=== PATIENT | female | born 1945 | race Caucasian/White ===

== ENCOUNTER 2017-02-18 15:05 | Emergency (ER) | payer MEDICARE ==
[~2017-02-18] VITALS: Ht 160 cm; Wt 64.5 kg
[2017-02-18 15:17] VITALS: BP 128/63; PULSE 80; RESP 16; O2SAT 98
--- NOTE | 2017-02-18 15:29 | ED.REPORT ---
HPI-Syncope Date of Service Feb 18, 2017 ED Provider: Steve Berman Patient is a 71 year old female with a hx of HTN who presents to the ED complaining of a syncopal episode while on a bus coming back from a cruise with her . Per , she was unconscious for approximately a minute. Associated symptoms include abdominal cramping which she attributes to eating half a bag of spicy beef jerky. She has been eating normally but reports drinking less than normal. She denies chest pain, SOB, lightheadedness, dizziness, headache, fever, chills, or any other symptoms. Patient had a similar episode after a major knee surgery 4 mo ago. Per , pt has been amnestic to both events. Patient is on her way back home to [place]. Nursing Notes Stated Complaint: WAS UNRESPONSIVE Chief Complaint: General Complaint Nursing Notes Reviewed: Yes Allergies: Coded Allergies: Penicillins (Verified Allergy, Severe, Rash, 02/18/17) celecoxib (Verified Allergy, Severe, Anaphylaxis, 02/18/17) ibuprofen (Verified Adverse Reaction, Severe, Abdominal Pain, 02/18/17) General Time Seen by Provider: 15:29 Chief Complaint Became unresponsive Hx Obtained From: Patient, Spouse Arrived By: Walk-in Onset Occurred: Just prior to arrival Symptom Duration: 1 - 15 minutes (1 min ) Progression Since Onset: Resolved Location: : Abdomen Quality: Cramping Severity: Current: Mild Severity: Maximum: Mild Related History: Reports: Hypertension Immunizations: Unknown Similar Sx Previous: Yes Past Medical History Past Medical History HTN Past Surgical History None reported Smoking History Unknown if Ever Smoker Social History Other Social History: , From out of town, Visiting locally Ambulatory Status Independent Review of Systems Review of Systems Note: - decreased appetite + decreased fluid intake Constitutional: Denies: Chills, Fever Respiratory: Denies: Shortness of breath Cardiovascular: Denies: Chest pain GI: Reports: Abdominal pain Neurologic: Reports: Syncope, Denies: Dizziness, Headache, Lightheaded Complete sys rev & neg: except as marked. Physical Exam Initial Vital Signs Vital Signs (First) Date Time Temp Pulse Resp B/P Pulse Ox O2 Delivery O2 Flow Rate FiO2 02/18/17 15:17 35.8 80 16 128/63 98 Room Air Initial VS: Reviewed, Vital signs normal Head / Eyes: Atraumatic, Normocephalic, PERRL Neck: Supple, Non-tender, Full range of motion Skin: Warm, Dry Psychiatric: Mood/affect normal, Behavior normal, Normal thought content General/Constitutional: Awake, Alert, No acute distress Respiratory / Chest: Atraumatic, Breath sounds NL, Breath sounds = bilat, No respiratory distress Cardiovascular: Heart rate NL, Regular rhythm, Heart sounds NL, No gallop, No murmurs, No rubs Lower Extremity / Pelvis / MS: Atraumatic, Inspection NL Neurologic: Oriented X3, Speech NL Abdomen: Atraumatic, Soft, Non-tender, No guarding, No rebound, BS normoactive , No pulsatile mass Interpretation & Diagnostics Lab Results Interpretation Result Diagram: 02/18/17 1551 02/18/17 1551 Test 02/18/17 15:37 02/18/17 15:51 Hold Urine Received (Received) White Blood Count 4.9th/mm3 (3.8-10.1) Red Blood Count 4.56mil/mm3 (3.90-5.20) Hemoglobin 13.3g/dL (12.0-15.6) Hematocrit 40.5% (35.0-46.0) Mean Corpuscular Volume 88.8fL (81-100) Mean Corpuscular Hemoglobin 29.2pg (27.0-35.0) Mean Corpuscular Hemoglobin Concent 32.8% (32.0-37.0) Red Cell Distribution Width 14.9% (12.3-15.4) Platelet Count 222bil/L (150-400) Neutrophils (%) (Auto) 56.7% (40-74) Lymphocytes (%) (Auto) 30.6% (14-46) Monocytes (%) (Auto) 8.4% (4-12) Eosinophils (%) (Auto) 2.9% (0-5) Basophils (%) (Auto) 0.4% (0-3) Prothrombin Time 10.6sec (8.1-12.5) Prothromb Time International Ratio 0.99ratio Sodium Level 137mEq/L (134-144) Potassium Level 3.9mEq/L (3.5-5.2) Chloride Level 98mEq/L (97-108) Carbon Dioxide Level 23mmol/L (18-29) Blood Urea Nitrogen 23mg/dL (8-27) Creatinine 0.95mg/dL (0.57-1.00) Estimat Glomerular Filtration Rate 83mL/min (>59) Glucose Level 137mg/dL (60-99) Calcium Level 10.4mg/dL (8.5-10.1) Magnesium Level 1.9mg/dL (1.6-2.6) Total Bilirubin 0.3mg/dL (0.0-1.2) Aspartate Amino Transf (AST/SGOT) 27U/L (0-50) Alanine Aminotransferase (ALT/SGPT) 31U/L (0-32) Alkaline Phosphatase 71U/L (25-165) Troponin T < 0.010ug/L (0.0-0.011) Total Protein 7.6g/dL (6.4-8.4) Albumin 4.5g/dL (3.4-5.0) Hold Godfrey Top Tube Received (Received) ECG Interpretation ECG Interpretation: sinus rate [address] segment changes Time: 15:59 X-Ray Chest Interpretation Chest Xray Interpretation: IMPRESSION: Mild left basilar atelectasis. No other acute cardiopulmonary findings. Dictated by: Kalyani Izaguirre M.D. on 02/18/2017 at 16:15 Approved by: Kalyani Izaguirre M.D. on 02/18/2017 at 16:15 View: Portable, 1 view Interpretation / Wet Read by: Interpret - Radiologist Re-Eval/Medical Decision Med Decision/Clinical Course 71-year-old female with a brief syncopal episode, occurred in the context of some GI upset. Now feeling well other than some mild heartburn. Examination and labs are reassuring. I find no evidence for structural heart disease, ischemia hypovolemia or an infectious process. The patient and her are from the [facility] and were traveling through with a flight to [place]. I do not find an indication for hospitalization and with no ischemic symptoms did not feel the trending troponin was necessary. Re-Evaluation/Progress : Time of Eval: 16:49 )( Re-Eval Neurologic Exam: Alert, Pt is back to baseline, Oriented X3, Speech normal, Gait normal Re-Evaluation/Progress Note: Rechecked pt who passed road test. Discussed plan for discharge. Patient understands and agrees with plan. All questions addressed at this time. Counseled Regarding: Diagnosis, Lab results, Need for follow-up, When/why to return to ED Discharge & Departure Impression: Primary Impression: Episode of syncope Syncope type: unspecified Qualified Code: R55 - Syncope and collapse Disposition: Home Discharge Condition All VS Reviewed: Yes Condition: Improved Additional Instructions: Emergency department evaluation today included review, examination labs and ECG. We did not find a serious cause for the earlier episode of unresponsiveness. Abdominal discomfort possibly caused by spicy foods may have precipitated this event. At this point it is felt safe for you to travel home. Seek medical attention immediately if you have a recurrent episode of fainting , chest pain shortness of breath fevers or sweats. Follow-up with primary care next week. Have a safe trip home. Scribe Attestation Portions of this note were transcribed by Madeline Aviles. I, Dr. Berman personally performed the history, physical exam and medical decision-making; I reviewed and confirmed the accuracy of the information in the transcribed note. Signed by: Mariusz Stokes, 02/18/17 Steve Berman MD Feb 18, 2017 15:29 MADELINE AVILES Feb 18, 2017 16:06
[2017-02-18 15:56] LABS: BASOPHILS % (AUTO) 0.4 % (0-3); EOSINOPHILS % (AUTO) 2.9 % (0-5); MONOCYTES % (AUTO) 8.4 % (4-12); Mean Corpuscular Hemoglobin 29.2 pg (27.0-35.0); Mean Corpuscular Volume 88.8 fL (81-100); NEUTROPHILS % (AUTO) 56.7 % (40-74); Platelet Count 222 bil/L (150-400)
[2017-02-18 16:11] LABS: INR 0.99 ratio
--- NOTE | 2017-02-18 16:17 | DRSVH ---
PROCEDURE: X-RAY CHEST ONE VIEW, PORTABLE ([id number]) INDICATIONS: sob TECHNIQUE: One view of the chest was acquired. COMPARISON: None. FINDINGS: Surgical changes and devices: None. Lungs and pleura: Mild atelectasis is present at the left lung base. The lungs are otherwise clear. N o pleural effusion or pneumothorax. Mediastinum: Mediastinal contours appear normal. Heart size is normal. Bones and chest wall: No suspicious bony lesions. Overlying soft tissues appear unremarkable. IMPRESSION: Mild left basilar atelectasis. No other acute cardiopulmonary findings. Dictated by: Kalyani Izaguirre M.D. on 02/18/2017 at 16:15 Approved by: Kalyani Izaguirre M.D. on 02/18/2017 at 16:15
[2017-02-18 16:22] LABS: TROPONIN T < 0.010 ug/L (0.0-0.011)
[2017-02-18 16:28] LABS: Magnesium 1.9 mg/dL (1.6-2.6)
[2017-02-18 17:12] VITALS: BP 109/41; PULSE 80; RESP 15; O2SAT 98
== END 2017-02-18 17:14 | disposition home or self-care (01) ==
LOC: SED 15:05
DX: R55 Syncope and collapse (principal); I10 Essential (primary) hypertension; Z88.0 Allergy status to penicillin; Z88.6 Allergy status to analgesic agent; Z88.8 Allergy status to other drugs, medicaments and biological substances